=== PATIENT | female | born 1950 | race Caucasian/White ===

== ENCOUNTER 2017-10-19 22:27 | Emergency (ER) | payer MEDICARE, MEDICAID ==
[~2017-10-19] VITALS: Ht 172.7 cm; Wt 95.3 kg
[~2017-10-19 22:27] MED LIST: ALDACTONE25 MG PO; ASPIR 8181 MG PO; ASPIRIN325 PO; AUGMENTIN 875875 MG PO; BACLOFEN20 MG; BELSOMRA20 MG PO; CARISOPRODOL 3350 MG; CHANTIX1 MG PO; CIPRO500 MG PO; CLONAZEPAM 0.50.5 M1 PO; CLONAZEPAM 1 MG1 M1; CLONIDINE0.1 PO; DEXEDRINE5 MG; DILAUDID IMPLANT; DIOVAN 80 MG TA80 M1; HYZAAR 50-12.51 EACH PO; IBUPROFEN 800800 M1 PO; LEVAQUIN 500 M500 M2 PO; LEVOTHYROXINE 0.1 MG PO; LIORESAL 10 MG10 MG PO; LOSARTAN-HCTZ1 EACH PO; LYRICA200 MG PO; MELATONIN5 M1 PO; NORVASC5 MG PO; OMEPRAZOLE 20 M20 M1 PO; ONDANSETRON HCL4 M2 PO; OXYCODONE HCL 55 MG; OXYCODONE HCL 55 MG PO; OXYCODONE HCL15 MG PO; OXYCONTIN20 M1 PO; OXYMORPHONE HCL10 MG PO; PHENERGAN 25 MG25 M1 PO; PHENERGAN50 MG RC; PREDNISONE 10 M10 MG PO; ROXICODONE15 M1 PO; ROXICODONE5 M2 PO; TRAMADOL 50 MG50 MG PO; WELLBUTRIN 100100 MG PO; XARELTO10 MG PO; morphine
[2017-10-19] MEDS ORDERED: DOXYCYCLINE 10100 MG PO (22:30)
[2017-10-19] MEDS ORDERED: PREDNISONE 10 M10 MG PO (22:31)
[2017-10-19 23:30] LABS: ABSOLUTE BASOPHILS 0.1 thou/uL (0.0-0.2); ABSOLUTE LYMPHOCYTES 2.9 thou/uL (0.8-5.3); ABSOLUTE MONOCYTES 1.1 thou/uL (0.0-1.2); ABSOLUTE NEUTROPHILS 7.9 thou/uL (1.6-8.1); BASOPHILS 0.8 %; EOSINOPHILS 0.2 %; HEMATOCRIT 44.5 % (37.0-47.0); HEMOGLOBIN 14.5 gm/dL (12.0-15.0); LYMPHOCYTES 24.2 %; MCH 28.5 pg (26.0-34.0); MCHC 32.6 g/dL (28.0-37.0); MCV 87.3 fL (80.0-100.0); MONOCYTES 8.8 %; MPV 8.5 fl. (7.2-11.1); NUCLEATED RBCS 0 /100WBC; PLATELET COUNT* 242 thou/uL (150-400); RDW-CV 16.6 % (10.5-14.5)
[2017-10-19 23:35] LABS: ANION GAP 8 mmol/L (7-16); BUN 11 mg/dL (7-18); CHLORIDE 107 mmol/L (98-107); CO2 27 mmol/L (21-32); CREATININE 0.8 mg/dL (0.6-1.3); GLUCOSE 113 mg/dL (70-99); POTASSIUM 3.6 mmol/L (3.5-5.1); SODIUM 142 mmol/L (136-145)
[2017-10-19 23:38] LABS: INR 1.1; PROTIME 10.5 Seconds (9.20-11.50)
[2017-10-19 23:46] LABS: ALBUMIN 3.5 g/dL (3.4-5.0); ALKALINE PHOSPHATASE 120 U/L (46-116); NT-PRO BRAIN NAT PEPTIDE 112 pg/mL (<300); SGOT 13 U/L (15-37); SGPT 19 U/L (30-65); TOTAL BILIRUBIN 0.2 mg/dL (<0.1-1.0); TOTAL PROTEIN 7.6 g/dL (6.4-8.2); TROPONIN-I LEVEL <0.06 ng/mL (<0.06)
[2017-10-20 01:49] LABS: INFLUENZA A ANTIGEN None Detected (None Detect); INFLUENZA B ANTIGEN None Detected (None Detect)
[2017-10-20] MEDS ORDERED: PERCOCET 10-321 EACH PO (03:50)
[2017-10-20] MEDS ORDERED: ROXICODONE5 M2 PO (04:17)
[2017-10-20 04:48] VITALS: BP 165/96
[2017-10-20 05:04] LABS: URINE BILIRUBIN NEGATIVE (Negative); URINE BLOOD NEGATIVE (Negative); URINE CLARITY CLEAR; URINE COLOR YELLOW; URINE GLUCOSE-RANDOM NEGATIVE (Negative); URINE KETONES NEGATIVE (Negative); URINE LEUKOCYTES-REFLEX NEGATIVE (Negative); URINE NITRITE-REFLEX NEGATIVE (Negative); URINE PROTEIN NEGATIVE (Negative); URINE SPECIFIC GRAVITY <= 1.005 (1.005-1.030); URINE UROBILINOGEN 0.2 E.U./dl (0.2-1.0)
== END 2017-10-20 04:52 | disposition home or self-care (01) ==
LOC: M.ERS 22:27
PROVIDERS: Emergency Medicine
DX: J40 Bronchitis, not specified as acute or chronic (principal); M06.9 Rheumatoid arthritis, unspecified; E03.9 Hypothyroidism, unspecified; Z86.19 Personal history of other infectious and parasitic diseases; Z88.8 Allergy status to other drugs, medicaments and biological substances; Z88.5 Allergy status to narcotic agent; Z86.73 Personal history of transient ischemic attack (TIA), and cerebral infarction without residual deficits; Z90.710 Acquired absence of both cervix and uterus; Z90.49 Acquired absence of other specified parts of digestive tract; Z98.890 Other specified postprocedural states

== ENCOUNTER 2017-10-31 12:58 | Emergency (ER) | payer MEDICARE, MEDICAID ==
[~2017-10-31] VITALS: Ht 175.3 cm; Wt 98.9 kg
[~2017-10-31 12:58] MED LIST changes: +DOXYCYCLINE 10100 MG PO; +PERCOCET 10-321 EACH PO
[2017-10-31] MEDS ORDERED: NORCO 5-325 TA1 EAC1 PO (16:01)
[2017-10-31 16:20] VITALS: BP 155/98
== END 2017-10-31 16:22 | disposition home or self-care (01) ==
LOC: M.ERS 12:58
DX: S62.615A Displaced fracture of proximal phalanx of left ring finger, initial encounter for closed fracture (principal); S80.01XA Contusion of right knee, initial encounter; S09.8XXA Other specified injuries of head, initial encounter; M06.9 Rheumatoid arthritis, unspecified; M32.9 Systemic lupus erythematosus, unspecified; M79.7 Fibromyalgia; E03.9 Hypothyroidism, unspecified; G89.29 Other chronic pain; Z86.73 Personal history of transient ischemic attack (TIA), and cerebral infarction without residual deficits; Z86.711 Personal history of pulmonary embolism; Z88.5 Allergy status to narcotic agent; Z88.8 Allergy status to other drugs, medicaments and biological substances; W01.198A Fall on same level from slipping, tripping and stumbling with subsequent striking against other object, initial encounter; Y93.89 Activity, other specified; Y92.89 Other specified places as the place of occurrence of the external cause; Y99.8 Other external cause status

== ENCOUNTER 2017-11-04 21:07 | Emergency (ER) | payer MEDICARE, MEDICAID ==
[~2017-11-04] VITALS: Ht 175.3 cm; Wt 94.3 kg
[~2017-11-04 21:07] MED LIST changes: +NORCO 5-325 TA1 EAC1 PO
[2017-11-04] MEDS ORDERED: HYDROCODONE-AP1 EAC6 PO (21:30)
[2017-11-04 21:41] VITALS: BP 153/94
== END 2017-11-04 21:42 | disposition home or self-care (01) ==
LOC: M.ERS 21:07
DX: M79.645 Pain in left finger(s) (principal); E03.9 Hypothyroidism, unspecified; M06.9 Rheumatoid arthritis, unspecified; Z90.49 Acquired absence of other specified parts of digestive tract; Z98.890 Other specified postprocedural states; Z90.710 Acquired absence of both cervix and uterus; Z86.73 Personal history of transient ischemic attack (TIA), and cerebral infarction without residual deficits; Z86.19 Personal history of other infectious and parasitic diseases; Z88.5 Allergy status to narcotic agent; Z88.8 Allergy status to other drugs, medicaments and biological substances

== ENCOUNTER 2018-01-20 00:24 | Emergency (ER) | payer MEDICARE, MEDICAID ==
[~2018-01-20] VITALS: Ht 177.8 cm; Wt 90.7 kg
[~2018-01-20 00:24] MED LIST changes: +HYDROCODONE-AP1 EAC6 PO
[2018-01-20 00:53] LABS: ABSOLUTE BASOPHILS 0.1 thou/uL (0.0-0.2); ABSOLUTE EOSINOPHILS 0.2 thou/uL (0.0-0.7); ABSOLUTE LYMPHOCYTES 3.2 thou/uL (0.8-5.3); ABSOLUTE MONOCYTES 0.7 thou/uL (0.0-1.2); ABSOLUTE NEUTROPHILS 3.9 thou/uL (1.6-8.1); BASOPHILS 1.1 %; EOSINOPHILS 2.8 %; HEMATOCRIT 39.3 % (37.0-47.0); HEMOGLOBIN 13.1 gm/dL (12.0-15.0); LYMPHOCYTES 39.6 %; MCH 29.7 pg (26.0-34.0); MCHC 33.3 g/dL (28.0-37.0); MCV 89.3 fL (80.0-100.0); MONOCYTES 8.6 %; MPV 8.4 fl. (7.2-11.1); NUCLEATED RBCS 0 /100WBC; PLATELET COUNT* 249 thou/uL (150-400); POLYS 47.9 %; RDW-CV 14.9 % (10.5-14.5); WBC 8.2 thou/uL (4.0-11.0)
[2018-01-20 00:59] LABS: ANION GAP 7 mmol/L (7-16); BUN 10 mg/dL (7-18); CALCIUM 8.7 mg/dL (8.5-10.1); CHLORIDE 107 mmol/L (98-107); CO2 30 mmol/L (21-32); CREATININE 0.9 mg/dL (0.6-1.3); GLUCOSE 91 mg/dL (70-99); POTASSIUM 3.9 mmol/L (3.5-5.1); SODIUM 144 mmol/L (136-145)
[2018-01-20 01:01] LABS: APTT 28.2 Seconds (25.0-31.3); PROTIME 9.8 Seconds (9.20-11.50)
[2018-01-20 01:10] LABS: ALBUMIN 3.4 g/dL (3.4-5.0); ALKALINE PHOSPHATASE 100 U/L (46-116); NT-PRO BRAIN NAT PEPTIDE 103 pg/mL (<300); SGOT 14 U/L (15-37); SGPT 13 U/L (30-65); TOTAL BILIRUBIN 0.1 mg/dL (<0.1-1.0); TOTAL PROTEIN 7.1 g/dL (6.4-8.2); TROPONIN-I LEVEL <0.06 ng/mL (<0.06)
[2018-01-20 01:50] VITALS: BP 127/66
--- NOTE | 2018-01-20 08:37 | EKG ---
[place] [address] ELECTROCARDIOGRAM REPORT Name: SHAN MATSON Room: [facility]#: [id number] Admission: 01/20/18 Attend Phys: Discharge: 01/20/18 Date of : 54 Report #: [id number] THIS REPORT FOR: //name// [facility] ED Test Date: 2018-01-20 Test Time: 00:48:23 Pat Name: SHAN MATSON Department: Room: Gender: F Director Dance: MOO Shafer : 1950 Requested By: Lamin Sheikh Order Number: [id number] MD: Keon Morse Measurements Intervals [place] Rate: 67 P: 43 WI: 191 QRS: 1 QRSD: 97 T: 60 QT: 416 QTc: 439 Interpretive Statements Sinus rhythm Baseline wander in lead(s) V3 Compared to ECG 04/05/2017 10:37:55 No significant changes Electronically Signed On 01-20-2018 8:36:49 CDT by Keon Morse [email or web address] <ELECTRONICALLY SIGNED> By: Keon Morse MD, MERGED WITH [facility] 01/20/18 0836 [id number] Keon Morse MD, MERGED WITH [facility] /EPI
== END 2018-01-20 03:15 | disposition home or self-care (01) ==
LOC: M.ERS 00:24
PROVIDERS: Family Medicine
DX: R53.1 Weakness (principal); M06.9 Rheumatoid arthritis, unspecified; M32.9 Systemic lupus erythematosus, unspecified; M79.7 Fibromyalgia; E03.9 Hypothyroidism, unspecified; F17.200 Nicotine dependence, unspecified, uncomplicated; Z88.5 Allergy status to narcotic agent; Z86.73 Personal history of transient ischemic attack (TIA), and cerebral infarction without residual deficits; Z86.711 Personal history of pulmonary embolism; Z90.710 Acquired absence of both cervix and uterus; Z90.49 Acquired absence of other specified parts of digestive tract; Z90.89 Acquired absence of other organs; Z88.8 Allergy status to other drugs, medicaments and biological substances

== ENCOUNTER → 2018-04-18 | Outpatient (CLI) | payer MEDICARE, MEDICAID | LOC: M.NUC 03-27 13:13 | DX: M25.561 Pain in right knee (principal); E03.9 Hypothyroidism, unspecified; Z96.651 Presence of right artificial knee joint; Z78.0 Asymptomatic menopausal state ==

== ENCOUNTER 2018-09-05 19:51 | Emergency (ER) | payer MEDICARE, MEDICAID ==
[~2018-09-05] VITALS: Ht 177.8 cm; Wt 93.0 kg
[2018-09-05 21:09] VITALS: BP 000/000
== END 2018-09-05 21:12 | disposition home or self-care (01) ==
LOC: M.ERS 19:51
DX: G89.29 Other chronic pain (principal); M54.5 Low back pain; M19.90 Unspecified osteoarthritis, unspecified site; M79.7 Fibromyalgia; E03.9 Hypothyroidism, unspecified; Z96.659 Presence of unspecified artificial knee joint; M32.9 Systemic lupus erythematosus, unspecified; Z87.01 Personal history of pneumonia (recurrent); Z90.49 Acquired absence of other specified parts of digestive tract; Z90.710 Acquired absence of both cervix and uterus; Z86.73 Personal history of transient ischemic attack (TIA), and cerebral infarction without residual deficits; Z88.5 Allergy status to narcotic agent; Z88.8 Allergy status to other drugs, medicaments and biological substances

== ENCOUNTER → 2018-10-16 | Outpatient (CLI) | payer MEDICARE, MEDICAID ==
[2018-10-16 11:15] VITALS: BP 115/57
[2018-10-16 11:30] VITALS: BP 149/56
[2018-10-16 11:45] VITALS: BP 134/52
[2018-10-16 12:00] VITALS: BP 124/57
[2018-10-16 12:30] VITALS: BP 119/57
[2018-10-16 13:00] VITALS: BP 124/68
== END | disposition home or self-care (01) ==
LOC: M.RAD 08-30 11:24 → M.CT 09-07 09:00 → M.RAD 10-12 09:00 → M.CT 10-12 09:00 → M.RAD 08:57
DX: M51.36 Other intervertebral disc degeneration, lumbar region (principal); M43.17 Spondylolisthesis, lumbosacral region; M19.90 Unspecified osteoarthritis, unspecified site; G89.29 Other chronic pain; Z88.8 Allergy status to other drugs, medicaments and biological substances; Z79.82 Long term (current) use of aspirin; Z79.899 Other long term (current) drug therapy; Z98.890 Other specified postprocedural states

== ENCOUNTER 2018-11-07 19:18 | Emergency (ER) | payer OTHER, MEDICAID ==
[~2018-11-07] VITALS: Ht 172.7 cm; Wt 93.0 kg
[2018-11-07 21:38] VITALS: BP 188/88
== END 2018-11-07 21:38 | disposition home or self-care (01) ==
LOC: M.ERS 19:18
DX: S89.92XA Unspecified injury of left lower leg, initial encounter (principal); M06.9 Rheumatoid arthritis, unspecified; M32.9 Systemic lupus erythematosus, unspecified; M79.7 Fibromyalgia; G89.29 Other chronic pain; E03.9 Hypothyroidism, unspecified; Z88.8 Allergy status to other drugs, medicaments and biological substances; Z86.73 Personal history of transient ischemic attack (TIA), and cerebral infarction without residual deficits; Z90.710 Acquired absence of both cervix and uterus; Z90.49 Acquired absence of other specified parts of digestive tract; Z96.653 Presence of artificial knee joint, bilateral; W18.39XA Other fall on same level, initial encounter; Y92.89 Other specified places as the place of occurrence of the external cause; Y93.01 Activity, walking, marching and hiking; Y99.8 Other external cause status